=== PATIENT | male | born 1935 | race Caucasian/White ===

== ENCOUNTER 2017-10-07 22:09 | Emergency (ER) | END 2017-10-07 23:30 | disposition home or self-care (01) ==

== ENCOUNTER → 2017-10-12 | Outpatient (CLI) | payer MEDICARE, OTHER ==
[~2017-10-12] MED LIST: ACET325 PO; ALBIPROI INH; ALPR.25 PO; ALUM-MAG HYDRO360 ML PO; AMLO10 PO; Ativan1 MG PO; BISA10S PR; CEFU500 PO; DIVA250ER PO; DONE10 PO; DOXY100 PO; FURO40 PO; HALDOL TOP; HYDCHL12.5; HYDGUAL120 PO; IRBE150; LEVFLO500 PO; LOPE2C PO; LORAZEPAM TOP; LORTAB 10 MG-3473 ML PO; Lactulose10 GM/151 PO; Milk Of Ma400 MG/5 M PO; NIFE30ER; OLAN5 PO; PRED20 PO; SERT50 PO; TYLECOD3 PO; VALP250S60 PO; VALS80
[2017-10-12 12:58] LABS: Source, Urine Clean Catch
[2017-10-12 13:08] LABS: Bilirubin, Urine Neg (Neg); Blood, Urine Neg (Neg); Glucose Qualitative, Urine Neg (Neg); Ketones, Urine Neg (Neg); Leukocyte Esterase, Urine 1+ (Neg); Nitrite, Urine Neg (Neg); Protein, Urine Neg (Neg); Urobilinogen, Urine NORM (Normal); pH, Urine 6.5 (5.0-8.0)
[2017-10-12 13:21] LABS: Appearance, Urine Hazy (Clear); Color, Urine Yellow (P-Yellow)
[2017-10-12 13:24] LABS: Bacteria Mod /hpf; Red Blood Cells, Urine Not Seen /hpf (0-2); Squamous Epithelial Cells Few /hpf (Few)
== END ==
LOC: LAB SHORT 12:57
DX: N39.0 Urinary tract infection, site not specified (principal)
CPT/HCPCS: 81001; 87086

== ENCOUNTER 2018-05-20 10:40 | Emergency (ER) | payer MEDICARE, OTHER ==
[~2018-05-20] VITALS: Ht 175.3 cm; Wt 81.7 kg
[~2018-05-20 10:40] MED LIST changes: -FURO40 PO; -LORTAB 10 MG-3473 ML PO
[2018-05-20] MEDS ORDERED: FURO40 PO (11:01)
[2018-05-20] MEDS ORDERED: LORTAB 10 MG-3473 ML PO (11:31)
== END 2018-05-20 12:52 | disposition home or self-care (01) ==
LOC: ER 10:40
DX: R41.82 Altered mental status, unspecified (principal); F03.90 Unspecified dementia, unspecified severity, without behavioral disturbance, psychotic disturbance, mood disturbance, and anxiety; Z79.899 Other long term (current) drug therapy; I10 Essential (primary) hypertension
CPT/HCPCS: 99284